=== PATIENT | male | born 1965 | race Caucasian/White ===

== ENCOUNTER 2022-02-27 04:43 | Day surgery (SDC) | payer OTHER ==
[2022-02-23 15:30] VITALS: BMI 19.5
[2022-02-27 09:39] VITALS: TEMP 98
[2022-02-27 10:45] VITALS: BP 119/60; PULSE 82
== END 2022-02-27 10:33 | disposition home or self-care (01) ==
LOC: JASU-ENDO 04:43
PROVIDERS: ATTEND Internal Medicine Gastroenterology
PROC: 0DJD8ZZ Inspection of Lower Intestinal Tract, Via Natural or Artificial Opening Endoscopic (ICD-10-PCS; principal; 2022-02-27 09:00)
DX: Z12.11 Encounter for screening for malignant neoplasm of colon (principal); K57.30 Diverticulosis of large intestine without perforation or abscess without bleeding; K64.8 Other hemorrhoids

== ENCOUNTER 2022-04-26 04:22 | Day surgery (SDC) | payer OTHER ==
[2022-04-23 13:33] VITALS: BMI 19.3
[2022-04-26] MEDS ORDERED: SIMETHICONE 40 MG/0.6 ML BOTTLE ONE (08:11)
[2022-04-26 09:20] VITALS: BP 110/60; PULSE 69
[2022-04-26 12:43] VITALS: TEMP 98
== END 2022-04-26 09:10 | disposition home or self-care (01) ==
LOC: JASU-ENDO 04:22
PROVIDERS: ATTEND Internal Medicine Gastroenterology
PROC: 0DB78ZX Excision of Stomach, Pylorus, Via Natural or Artificial Opening Endoscopic, Diagnostic (ICD-10-PCS; 2022-04-26)
PROC: 0DB68ZX Excision of Stomach, Via Natural or Artificial Opening Endoscopic, Diagnostic (ICD-10-PCS; 2022-04-26)
PROC: 0DB58ZX Excision of Esophagus, Via Natural or Artificial Opening Endoscopic, Diagnostic (ICD-10-PCS; principal; 2022-04-26 08:00)
DX: K21.00 Gastro-esophageal reflux disease with esophagitis, without bleeding (principal); K22.2 Esophageal obstruction; K44.9 Diaphragmatic hernia without obstruction or gangrene; K29.50 Unspecified chronic gastritis without bleeding
CPT/HCPCS: 88305-TC; 88342-TC